=== PATIENT | male | born 1955 | race Caucasian/White ===

== ENCOUNTER 2018-02-24 16:50 | Emergency (ER) | payer OTHER, SELFPAY ==
[2018-02-24 17:14] VITALS: BP 179/93; PULSE 75; RESP 20; TEMP 36.4; O2SAT 100; BMI 26.1
[2018-02-24 20:28] VITALS: BP 157/94; PULSE 64; RESP 17; O2SAT 98
--- NOTE | 2018-02-25 03:31 | ED_ITS ---
HPI - Wound/Laceration General Chief Complaint: Wound/Laceration Stated Complaint: CUT RT WRIST Time Seen by Provider: 02/24/18 18:28 Source: patient and family Mode of arrival: ambulatory Limitations: no limitations History of Present Illness HPI narrative: do a otherwise healthy 62-year-old male presents to the emergency department with his and a chief complaint of a large crescent shaped laceration on the dorsum of his right wrist after working with some sharp pieces of metal that fell onto his arm. He complains of significant bleeding but denies any numbness, tingling or weakness. He denies other injury. He states his tetanus was updated September Onset (ago): hour(s) Extremity Location: Right: wrist Place: home Patient tetanus UTD: Yes Context: accidental Associated symptoms: pain Treatments prior to arrival: bandage Related Data Home Medications Medication Instructions Recorded Confirmed amlodipine [Norvasc] 5 mg PO QDAY #0 01/09/17 tamsulosin [Flomax] 0.4 mg PO QDAY #0 01/09/17 Previous Rx's Medication Instructions Recorded omeprazole 40 mg PO QDAY 30 Days #0 cap 01/10/17 tramadol 1 - 2 tab PO Q4HP PRN #10 tab 01/10/17 cephalexin [Keflex] 500 mg PO QID 7 Days #28 cap 02/24/18 Allergies Allergy/AdvReac Type Severity Reaction Status Date / Time niacin [NIACIN] Allergy Unknown Verified 02/24/18 17:18 Review of Systems Review of Systems All systems reviewed & are unremarkable except as noted in HPI and below Constitutional Denies chills, Denies fever(s), Denies lethargy and Denies weakness Eyes Denies change in vision, Denies eye discharge, Denies irritation and Denies loss of vision ENT Ears, Nose, Mouth, and Throat: Denies change in voice, Denies neck pain and Denies sore throat Cardiovascular Denies chest pain, Denies irregular heart rhythm, Denies lightheadedness, Denies palpitations, Denies dyspnea, Denies dyspnea on exertion and Denies orthopnea Respiratory Denies cough, Denies dyspnea, Denies dyspnea on exertion and Denies wheezing Gastrointestinal Gastrointestinal: Denies abdominal pain, Denies change in bowel habits, Denies diarrhea, Denies nausea and Denies vomiting Genitourinary Denies hematuria, Denies flank pain, Denies urinary incontinence and Denies urinary urgency Musculoskeletal Denies neck pain Integumentary/Breasts Denies pruritus, Denies erythema, Denies rash and Reports wounds Neurologic Denies confusion, Denies loss of vision and Denies weakness Psychiatric Denies anxiety, Denies confusion, Denies depression, Denies homicidal ideation and Denies suicidal ideation Endocrine Denies palpitations Hematologic/Lymphatic Denies easy bruising Allergic/Immunologic Denies wheezing PFSH Social History Smoking Status: Never smoker Exam Narrative Exam Narrative: GEN: AOx3 and in mild distress EYES: Pupils are equal, round, and reactive to light and accommodation. Extraoccular muscles are intact bilaterally. There is no subconjunctival hemorrhage or exudate. CHEST: Lungs are clear to auscultation bilaterally and free of wheezes, rales, or rhonchi. Heart rate is regular rhythm, there are no murmurs, clicks, rubs, or gallops. There is no chest wall tenderness. ABD: Abdomen is soft and nontender. There is no guarding or rebound. Bowel sounds are normal in all 4 quadrants. There is no mass or organomegaly. EXT: 6 cm crescent-shaped laceration over volar surface of the right wrist. Wound was examined in a bloodless field and flexor carpi radialis tendon glide noted. . Full painless ROM of all extremities with no loss of sensation or strength. SKIN: Warm, pink, and dry. No erythema or rash Initial Vital Signs Initial Vital Signs: Vital Signs Temperature 97.5 F L 02/24/18 17:14 Pulse Rate 75 02/24/18 17:14 Respiratory Rate 20 02/24/18 17:14 Blood Pressure 179/93 H 02/24/18 17:14 Pulse Oximetry 100 02/24/18 17:14 Procedures Laceration Repair Laceration 1: Site: upper extremity Side (If applicable): right Size (cm): 6 Description: linear Depth: simple, single layer Local Anesthetic: lidocaine 1% and with bicarb Pre-repair: wound explored and irrigated extensively Skin layer closed with: nylon Size (cm): 5-0 Number of sutures: 7 Technique: simple, interrupted Course Vital Signs - 8 hr 02/24/18 20:28 Pulse Rate 64 Respiratory Rate 17 Blood Pressure [Right Arm] 157/94 H Pulse Oximetry 98 MDM - Wound/Laceration Differential Diagnosis Differential diagnosis: Likely laceration, abscess, abrasion and avulsion of skin Discharge Plan Departure Patient Disposition: Home, Self-Care Clinical Impression: Laceration Discharge Date/Time: 02/24/18 20:47 Interventions: ED Discharge Assessment Last Done: 02/24/18 20:46 Instructions: DI for Laceration Repair Activity Restrictions/Additional Instructions: *You have been diagnosed with [ Right wrist laceration ] *What to do: *Take medications as directed * Please keep the wound clean and dry to the best of your ability. Please monitor for signs of infection such as redness to the skin or increasing pain. Have the sutures removed by your doctor in about 7 days. If you are unable to get into your doctor, we would be happy to remove the sutures in that same timeframe. *Return to ER if you should have any new, worsening or concerning symptoms , such as [ redness, swelling, increasing pain or other concerning symptoms] Prescriptions: New cephalexin [Keflex] 500 mg capsule 500 mg PO QID 7 Days Qty: 28 RF: 0 No Action amlodipine [Norvasc] 5 MG tablet 5 mg PO QDAY Qty: 0 RF: 0 tamsulosin [Flomax] 0.4 MG capsule,extended release 24hr 0.4 mg PO QDAY Qty: 0 RF: 0 tramadol 50 MG tablet 1 - 2 tab PO Q4HP PRNQty: 10 RF: 0 omeprazole 40 MG capsule,delayed release(DR/EC) 40 mg PO QDAY 30 Days Qty: 0 RF: 0 Referrals: Edgardo Pappas MD [Primary Care Provider] -
== END 2018-02-24 20:47 | disposition home or self-care (01) ==
PROVIDERS: Emergency Provider Emergency Medicine; Family Provider Internal Medicine; PCP Internal Medicine
DX: S61.511A Laceration without foreign body of right wrist, initial encounter (principal); W26.9XXA Contact with unspecified sharp object(s), initial encounter
CPT/HCPCS: 12002; 99282; 99283

== ENCOUNTER → 2019-02-25 08:33 | Outpatient (CLI) | payer OTHER, SELFPAY ==
--- NOTE | 2019-02-25 | DI.RAD.S_ITS ---
PROCEDURE: XR SHOULDER RT MIN 2V INDICATIONS: RIGHT SHOULDER PAIN TECHNIQUE: 3 views of the shoulder were acquired. COMPARISON: None. FINDINGS: Bones: No fractures or dislocations. No suspicious bony lesions. Visualized ribs appear intact. Soft tissues: Foci of soft tissue calcifications are compatible with calcific tendinitis of the rotator cuff. IMPRESSION: Calcific tendinitis of the rotator cuff. Dictated by: Lay Galan M.D. on 02/25/2019 at 17:09 Approved by: Lay Galan M.D. on 02/25/2019 at 17:15
[2019-02-25 08:55] LABS: Add Manual Diff / Slide Review NO; Basophils Absolute Auto 0 /uL (0-100); Basophils Percent Auto 0.5 % (0-2); Eosinophils Absolute Auto 300 /uL (0-450); Eosinophils Percent Auto 3.3 % (2-4); Hematocrit 47.1 % (41-53); Hemoglobin 15.9 g/dL (13.5-17.5); Lymphocytes Absolute Auto 1400 /uL (1100-4500); Lymphocytes Percent Auto 15.1 % (25-40); Mean Corpuscular HGB Conc 33.7 % (30-36); Mean Corpuscular Hemoglobin 28.6 PG (26-34); Mean Corpuscular Volume 84.9 fL (80-100); Monocytes Absolute Auto 900 /uL (0-900); Monocytes Percent Auto 9.5 % (3-14); Neutrophils Absolute Auto 6500 /uL (1500-7000); Neutrophils Percent Auto 71.6 % (50-75); Platelet Count 163 X10^3/uL (150-400); Red Blood Cell Count 5.55 X10^6/uL (4.5-5.9); Red Cell Distribution Width 14.1 % (11.6-14.8)
[2019-02-25 09:22] LABS: Alanine Aminotransferase 48 IU/L (21-72); Albumin 4.4 g/dL (3.5-5.0); Albumin Globulin Ratio 1.4 (1.0-2.8); Alkaline Phosphatase 70 U/L (38-126); Aspartate Aminotransferase 33 IU/L (17-59); BUN Creatinine Ratio 22.2 (6-22); Bilirubin Total 0.8 mg/dL (0.2-1.3); Blood Urea Nitrogen 20 mg/dL (9-20); Calcium 9.7 mg/dL (8.4-10.2); Carbon Dioxide 24 mmol/L (22-32); Chloride 104 mmol/L (98-107); Cholesterol 231 mg/dL (140-199); Estimated Glomerular Filt Rate > 60.0 mL/min (>60); Globulin 3.1 g/dL (1.7-4.1); Glucose 114 mg/dL (80-110); HDL Cholesterol 38 mg/dL (40-60); HEMOLYSIS < 15 (0-50); LDL Cholesterol Calculated 146 mg/dL (<100); Potassium 4.3 mmol/L (3.4-5.1); Sodium 138 mmol/L (137-145); Total Protein 7.5 g/dL (6.3-8.2); Triglycerides 237 mg/dL (35-150)
== END ==
PROVIDERS: PCP Internal Medicine; Visit Provider Internal Medicine
DX: K29.70 Gastritis, unspecified, without bleeding (principal); E78.00 Pure hypercholesterolemia, unspecified; I10 Essential (primary) hypertension; M25.511 Pain in right shoulder; R97.20 Elevated prostate specific antigen [PSA]
CPT/HCPCS: 36415; 73030; 80053; 80061; 84153; 85025; 86677

== ENCOUNTER → 2019-04-05 11:39 | Outpatient (CLI) | payer OTHER, SELFPAY ==
--- NOTE | 2019-04-05 | DI.RAD.S_ITS ---
PROCEDURE: XR HAND LT 2V INDICATIONS: ARTHRITIS SURVEY TECHNIQUE: 2 views of the hand(s) acquired. COMPARISON: None. FINDINGS: Bones: Moderate osteoarthritic changes are seen at first CMC joint. Mild osteoarthritic changes are noted throughout interphalangeal joints. No definite bony erosive changes. No fractures or dislocations. Carpal bones are normally aligned. No suspicious bony lesions. Soft tissues: No suspicious soft tissue calcifications. Small radiodensity adjacent to ulnar aspect of first proximal phalangeal base is seen, which could represent a small foreign body. IMPRESSION: Osteoarthritic changes involving first CMC joint and first through fifth interphalangeal joints. No definite bony erosion. Possible small foreign body in soft tissue adjacent to first proximal phalangeal base as above. Dictated by: Lupillo Rucker M.D. on 04/05/2019 at 12:57 Approved by: Lupillo Rucker M.D. on 04/05/2019 at 13:03
--- NOTE | 2019-04-05 | DI.RAD.S_ITS ---
PROCEDURE: XR HAND RT 2V INDICATIONS: ARTHRITIS SURVEY TECHNIQUE: 2 views of the hand(s) acquired. COMPARISON: None. FINDINGS: Bones: Mild osteoarthritic changes are noted at the CMC joint, first interphalangeal joint, second through fifth PIP and DIP joints. No definite bony erosive changes are seen. No fractures or dislocations. Carpal bones are normally aligned. No suspicious bony lesions. Soft tissues: No suspicious soft tissue calcifications. Small radiodensity involving soft tissue along ulnar aspect of first MCP joint, which may represent a small foreign body. IMPRESSION: Mild osteoarthritic changes in right hand as above. No definite bony erosive changes. Possible foreign body adjacent to first MTP joint. Dictated by: Lupillo Rucker M.D. on 04/05/2019 at 13:03 Approved by: Lupillo Rucker M.D. on 04/05/2019 at 13:05
== END ==
PROVIDERS: PCP Internal Medicine; Visit Provider Internal Medicine
DX: M19.042 Primary osteoarthritis, left hand (principal)
CPT/HCPCS: 73120